=== PATIENT | female | born 1955 | race Caucasian/White ===

== ENCOUNTER 2017-04-16 17:52 | Emergency (ER) | payer OTHER ==
[~2017-04-16] VITALS: Ht 157.5 cm; Wt 83.9 kg
--- NOTE | ~2017-04-16 | CR181 ---
[facility] A Service [facility] RADIOLOGY TEXT RESULTS PATIENT: MISSY YEUNG LOCATION: SED : 53 UNIT #: [id number] AGE: [address]: SANDEEP ALBA SEX: F ORDER DR: [id number] [place] [id number] E MR#: [id number] Acc #: [id number] NAME: MISSY YEUNG. : 1955 SEX: F STUDY DATE/TIME: 04/16/2017 19:33 UNIT: SED ROOM: STUDY DESCRIPTION: CR Lumbar Spine 2 or 3 Views Attending Physician: Sandeep Alba Ordering Physician: Physician Non-Staff Primary Care Physician: Jannette Segovia M.D. MEDICAL IMAGING REPORT This report is preliminary unless electronic signature is present. EXAM Lumbar spine, 04/16/2017. HISTORY 62-year-old female with low back pain radiating to left lower extremity for 1 week, worse today. COMPARISON None. FINDINGS Three views of the lumbar spine demonstrate no acute fracture or subluxation. Vertebral body heights and alignment are normally maintained. Disc spaces appear normally maintained. Moderate multilevel facet degeneration. Sacrum and SI joints intact. IMPRESSION 1. No acute lumbar spine injury. 2. Moderate multilevel facet degeneration. Dictated by... Andrew Burkett M.D. THIS IS AN ELECTRONICALLY VERIFIED REPORT Andrew Burkett M.D. at 04/18/2017 10:51 AM NATALIE/sergio TD: 04/17/2017 19:50 JOB #: [id number] [facility] A Service [facility] RADIOLOGY TEXT RESULTS PATIENT: MISSY YEUNG LOCATION: SED : 53 UNIT #: [id number] AGE: [address]: SANDEEP ALBA SEX: F ORDER DR: MEDICAL IMAGING REPORT Page 1 of 1
[2017-04-16] MEDS ORDERED: LEVOXYL125 MC1 PO (18:12)
[2017-04-16] MEDS ORDERED: HYDROCHLOROTHIA25 MG PO (18:14)
[2017-04-16] MEDS ORDERED: ALENDRONATE SOD70 MG PO (18:14)
[2017-04-16] MEDS ORDERED: ALLEGRA ALLERG180 MG PO (18:14)
== END 2017-04-16 21:37 | disposition home or self-care (01) ==
LOC: SED 17:52
DX: M54.32 Sciatica, left side (principal); I10 Essential (primary) hypertension; M85.80 Other specified disorders of bone density and structure, unspecified site
CPT/HCPCS: 72100; 96372; 99283; J1885; J2360